=== PATIENT | male | born 1940 | race Caucasian/White ===

== ENCOUNTER 2024-11-18 12:33 | Outpatient (CLI) | payer MEDICARE, OTHER ==
[~2024-11-18 12:33] MED LIST: ALBU2.5V10 NEB; APIX5TAB3 PO; ASCO100031 PO; ATOR40TA72 PO; CANABIS PO; DILT120C19 PO; DILT240C47 PO; FLO0.4C PO; GABA300C PO; LATA2.5D14 EACHEYE; MULT-1085 PO; NITR0.4T51 SL; PANT40TA54 PO; POTA8CAP20 PO; SPIR25TA5 PO; TORS20TA3 PO; UBID50TA3 PO; [UNRECOGNIZED DRUG - OTHER] PO
== END 2024-11-18 23:59 | disposition home or self-care (01) ==
LOC: VAS 12:33
PROVIDERS: ATTEND Surgery Vascular Surgery
DX: Z01.818 Encounter for other preprocedural examination (principal); I71.40 Abdominal aortic aneurysm, without rupture, unspecified; I65.23 Occlusion and stenosis of bilateral carotid arteries
CPT/HCPCS: 93880

== ENCOUNTER 2025-01-31 10:22 | Outpatient (CLI) | payer MEDICARE, OTHER | END 2025-01-31 23:59 | disposition home or self-care (01) | LOC: CARD DIAG 10:22 | PROVIDERS: ATTEND Internal Medicine Cardiovascular Disease | DX: I08.8 Other rheumatic multiple valve diseases (principal); Z95.2 Presence of prosthetic heart valve | CPT/HCPCS: 93306 ==